=== PATIENT | male | born 1965 | race Caucasian/White ===

== ENCOUNTER 2020-04-15 03:41 | Outpatient (CLI) | payer MEDICAID, SELFPAY ==
[2020-04-15 11:28] LABS: Abs Immature Grans 0.04 10^3/uL (0.0-0.06); Absolute Basophil Count 0.01 10^3/uL (0.0-0.2); Absolute Lymphocyte Count 0.27 10^3/uL (1.2-3.4); Absolute Monocyte Count 0.04 10^3/uL (0.1-0.8); Absolute Neutrophil Count 3.27 10^3/uL (1.2-6.7); Basophils % 0.3; HCT 31.4 % (40.0-50.0); HGB 10.8 g/dL (13.5-17.5); Immature Grans % 1.1; Lymphocytes % 7.4; MCH 35.1 pg (27.0-33.0); MCHC 34.4 % (32.0-36.0); MCV 101.9 fL (80-95); MPV 9.1 fL (8.0-11.0); Monocytes % 1.1; Neutrophils % 90.1; Nucleated RBC 0 %; Platelet Count 176 10^3/uL (130-400); RBC 3.08 10^6/uL (4.36-5.78); RDW 12.3 % (11.8-14.1); RDW-SD 46.6 fL; WBC 3.63 10^3/uL (4.4-10.8)
[2020-04-15 11:52] LABS: ALT 41 U/L (16-63); AST 42 U/L (15-37); Alkaline Phosphatase 77 U/L (46-116); Anion Gap 14.6 mmol/L (3-11); BUN 24 mg/dL (7-18); Bilirubin, Total 0.3 mg/dL (0.2-1.0); CO2 20.4 mmol/L (21.0-32.0); CREATININE 1.63 mg/dL (0.70-1.30); Calcium 9.3 mg/dL (8.5-10.1); Chloride 94 mmol/L (98-107); Estimated GFR 44.14 (mL/min/1.73m2); FREE T4 0.97 ng/dL (0.76-1.46); Glucose 148 mg/dL (74-106); LDH 130 U/L (85-227); Potassium 4.6 mmol/L (3.5-5.1); Sodium 129 mmol/L (136-145); TSH 0.39 uIU/mL (0.36-3.74); Total Protein 8.7 g/dL (6.4-8.2)
== END 2020-04-15 04:01 ==
PROVIDERS: PCP Nurse Practitioner Family; Visit Provider Internal Medicine Hematology & Oncology
DX: C34.92 Malignant neoplasm of unspecified part of left bronchus or lung (principal)
CPT/HCPCS: 36415; 80053; 83615; 84439; 84443; 85025

== ENCOUNTER 2020-05-04 13:43 | Outpatient (CLI) | payer MEDICAID, SELFPAY ==
[2020-05-04 14:04] LABS: Abs Immature Grans 0.08 10^3/uL (0.0-0.06); Absolute Eosinophil Count 0.02 10^3/uL (0.0-0.7); Absolute Lymphocyte Count 0.42 10^3/uL (1.2-3.4); Absolute Monocyte Count 0.35 10^3/uL (0.1-0.8); Absolute Neutrophil Count 1.03 10^3/uL (1.2-6.7); Eosinophils % 1.1; HCT 22.5 % (40.0-50.0); HGB 7.7 g/dL (13.5-17.5); Immature Grans % 4.2; Lymphocytes % 22.1; MCH 35.5 pg (27.0-33.0); MCHC 34.2 % (32.0-36.0); MCV 103.7 fL (80-95); MPV 9.6 fL (8.0-11.0); Monocytes % 18.4; Neutrophils % 54.2; Nucleated RBC 0 %; Platelet Count 141 10^3/uL (130-400); RBC 2.17 10^6/uL (4.36-5.78); RDW 12.8 % (11.8-14.1); RDW-SD 44.5 fL
[2020-05-04 14:29] LABS: Diff Comment Diff Reviewed; Hypochromasia 1+; Macrocytosis 1+; Polychromasia Present
[2020-05-04 14:35] LABS: ALT 25 U/L (16-63); AST 25 U/L (15-37); Albumin 3.1 g/dL (3.4-5.0); Alkaline Phosphatase 52 U/L (46-116); Anion Gap 13.1 mmol/L (3-11); BUN 16 mg/dL (7-18); Bilirubin, Total 0.2 mg/dL (0.2-1.0); CO2 21.9 mmol/L (21.0-32.0); CREATININE 1.33 mg/dL (0.70-1.30); Calcium 8.1 mg/dL (8.5-10.1); Chloride 100 mmol/L (98-107); Estimated GFR 55.82 (mL/min/1.73m2); FREE T4 1.06 ng/dL (0.76-1.46); Glucose 103 mg/dL (74-106); LDH 152 U/L (85-227); Sodium 135 mmol/L (136-145); TSH 0.49 uIU/mL (0.36-3.74); Total Protein 7.1 g/dL (6.4-8.2)
== END 2020-05-04 14:03 ==
PROVIDERS: PCP Nurse Practitioner Family; Visit Provider Internal Medicine Hematology & Oncology
DX: C34.92 Malignant neoplasm of unspecified part of left bronchus or lung (principal)
CPT/HCPCS: 36415; 80053; 83615; 84439; 84443; 85025

== ENCOUNTER 2020-05-04 14:54 | Observation (INO) | payer MEDICAID, SELFPAY ==
[2020-05-04] VITALS (57 sets, daily range): BP systolic 97–153; BP diastolic 59–81; PULSE 60–105; RESP 9–26; TEMP 36.3–37.1; O2SAT 92–97
--- NOTE | 2020-05-04 15:08 | W.ED.GENAD ---
Discharge Plan Disposition Patient Disposition: [facility] INPATIENT Condition: Stable Discharge Details Chief Complaint: GenMedical Clinical Impression: Neutropenic fever, Pneumonia, Acute on chronic anemia, Fatigue Admit Date/Time: 05/04/20 19:16 Admit Provider: Danny Jessica Attending Provider: Danny Jessica Primary Care Provider: Shazia Beltran ED Provider: Emily Urrutia Discharge Data Discharge Date/Time-TO BE ENTERED AT DEPARTURE: 05/04/20 21:45 Medical Decision Making 1540 -- 54-year-old male with a history of lung cancer who recently started chemotherapy presents for leukopenia and anemia noted on labs drawn today in preparation for chemotherapy in 2 days from now. He admits to recent generalized weakness and decreased appetite. He also admits to temp of 100 at the cancer center today. Heart rate 100s. Blood pressure stable. Afebrile. He appears chronically ill but nontoxic. Labs drawn today note a white blood cell count of 1.9, hemoglobin of 7.7, ANC 1.03. Will obtain a type and screen, lactate, troponin, magnesium, urinalysis, CT chest and abdomen. Will reach out to patient's oncologist Dr. Rodas for recommendations. 1830 --remainder of labs reviewed. Lactate 1.5. Troponin negative. Urinalysis negative. CT chest notes left upper lobe and right lower lobe neoplasm, questionable pneumonia right middle lobe. Case discussed with [facility] oncology on-call -they were notified that patient had a temp of 100.6 today. In setting of neutropenic fever, questionable pneumonia and fatigue, will admit for observation, fluids and IV antibiotics. Case discussed with hospitalist who accepts patient for admission. Patient initially hesitant for admission and then spoke with his sisters and is now agreeable. Medical Records Medical records reviewed: Yes I reviewed the patient's medical records. Imaging Data Radiologic Study: Radiologist's impression: CT Angiography Chest With Contrast Exam date and time: 05/04/2020 4:18 PM Age: 54 years old Clinical indication: Abdominal pain; Left-sided chest pain; Patient HX: L sided pain, R/O pe TECHNIQUE: Imaging protocol: Computed tomographic angiography of the chest with intravenous contrast. 3D rendering (Not supervised by radiologist): MIP and/or 3D reconstructed images were created by the technologist. COMPARISON: No relevant prior studies available. FINDINGS: Pulmonary arteries: Normal. No pulmonary emboli. Aorta: Unremarkable. No aortic aneurysm. No aortic dissection. Lungs: Somewhat spiculated opacity in the left upper lobe may represent pneumonia or neoplasm.. Milder opacity in the right middle lobe may represent atelectasis/pneumonia versus neoplasm.. Spiculated density in the right lower lobe 2.3 x 1.7 cm. ( Series 6, image 414).. 8.7 mm nodule in the right middle lobe. Series 4, image 41. . Small nodules in the posterior aspect of the superior segment of the right lower lobe [place] in the right lower lobe Pleural space: Unremarkable. No pneumothorax. No pleural effusion. Heart: Unremarkable. No cardiomegaly. No pericardial effusion. Mediastinal space: Soft tissue density in the right hilum 2.5 x 1.6 cm. . Lymph nodes: Unremarkable. No enlarged lymph nodes. Bones/joints: Healing bilateral rib fractures Soft tissues: Unremarkable. IMPRESSION: 1. Somewhat spiculated opacity in the left upper lobe may represent pneumonia or neoplasm.. 2. Milder opacity in the right middle lobe may represent atelectasis/pneumonia versus neoplasm.. 3. Spiculated density in the right lower lobe 2.3 x 1.7 cm. ( Series 6, image 414). Neoplasm versus pneumonia. 4. 8.7 mm nodule in the right middle lobe. Series 4, image 41. . 5. Soft tissue density in the right hilum 2.5 [address] Abdomen And Pelvis With Contrast Exam date and time: 05/04/2020 4:18 PM Age: 54 years old Clinical indication: Abdominal pain; Left-sided chest pain; Patient HX: L sided pain, R/O pe TECHNIQUE: Imaging protocol: Computed tomography of the abdomen and pelvis with intravenous contrast. COMPARISON: No relevant prior studies available. FINDINGS: Liver: Normal. No mass. Gallbladder and bile ducts: Normal. No calcified stones. No ductal dilation. Pancreas: Surgical clips adjacent to the head of the pancreas Spleen: Normal. No splenomegaly. Adrenals: Normal. No mass. Kidneys and ureters: Normal. No hydronephrosis. Stomach and bowel: The stomach is decompressed Appendix: No evidence of appendicitis. Intraperitoneal space: Unremarkable. No free air. No significant fluid collection. Vasculature: Unremarkable. No abdominal aortic aneurysm. Lymph nodes: Unremarkable. No enlarged lymph nodes. Bladder: Unremarkable as visualized. Reproductive: Unremarkable as visualized. Bones/joints: Unhealed fracture in the left transverse process of L2. Soft tissues: Unremarkable. IMPRESSION: Unhealed fracture in the left transverse process of L2. Lab Data Lab results reviewed: Yes I reviewed the patient's lab results. Labs: 05/04/20 16:50 Blood Blood Culture - Pending 05/04/20 16:35 Blood Blood Culture - Pending Laboratory Tests Range/Units 05/04/20 05/04/20 05/04/20 15:20 15:20 15:20 PT (9.3-11.0) sec INR (0.9-1.1) APTT (21.0-31.4) sec Lactate (0.6-1.4) mmol/L Magnesium (1.8-2.4) mg/dL 1.1 L Troponin I (<0.06) ng/mL < 0.05 Urine Color (Yellow) Urine Clarity (Clear) Urine pH (5-8) Ur Specific [place] (1.005-1.025) Urine Protein (Negative) mg/dL Urine Ketones (Negative) mg/dL Urine Blood (Negative) Urine Nitrite (Negative) Urine Bilirubin (Negative) Urine Urobilinogen (Up TO 0.2) EU/dL Ur Leukocyte Esterase (Negative) Urine RBC (0-2) HPF Urine WBC (0-5) HPF Ur Epithelial Cells (Negative) HPF Urine Crystals (Negative) HPF Urine Bacteria (Negative) HPF Urine Casts (Negative) LPF Urine Mucus (Negative) Ur Culture Indicated? Urine Glucose (Negative) mg/dL Patient ABO/Rh O Positive Antibody Screen Negative Crossmatch See Detail Range/Units 05/04/20 05/04/20 05/04/20 15:20 16:25 16:35 PT (9.3-11.0) sec 9.6 INR (0.9-1.1) 1.0 APTT (21.0-31.4) sec 25.3 Lactate (0.6-1.4) mmol/L 1.5 H Magnesium (1.8-2.4) mg/dL Troponin I (<0.06) ng/mL Urine Color (Yellow) Yellow Urine Clarity (Clear) Clear Urine pH (5-8) 5.5 Ur Specific [place] (1.005-1.025) 1.025 Urine Protein (Negative) mg/dL Trace H Urine Ketones (Negative) mg/dL Negative Urine Blood (Negative) Negative Urine Nitrite (Negative) Negative Urine Bilirubin (Negative) Negative Urine Urobilinogen (Up TO 0.2) EU/dL 0.2 Ur Leukocyte Esterase (Negative) Negative Urine RBC (0-2) HPF Negative Urine WBC (0-5) HPF Negative Ur Epithelial Cells (Negative) HPF Negative Urine Crystals (Negative) HPF Negative Urine Bacteria (Negative) HPF Negative Urine Casts (Negative) LPF 3-5 hyaline Urine Mucus (Negative) Trace Ur Culture Indicated? No Urine Glucose (Negative) mg/dL Negative Patient ABO/Rh Antibody Screen Crossmatch ECG Data Attestation: I personally reviewed and interpreted this ECG (s) as follows: Interpretation: Rate of 73, sinus, no acute ST elevation or depression. Peaked T waves in lead II, V3 through V6. NH 152. QRS 77. QTc 405. HPI General Mode of arrival: ambulatory. Date/Time Provider Initiated Documentation: 05/04/20 15:05. Limitations to Documentation: no limitations. Information obtained by: patient. HPI Narrative: Patient is a 54-year-old male with a history of lung cancer who recently started chemotherapy who presents after sent by [facility] for anemia. Of labs drawn today, his white blood cell count was 1.9, hemoglobin 7.7 and platelet count 141. Patient states when he was at the cancer center he had a temperature of 100. He states he has been feeling generally fatigued with a decreased appetite for the past few days. He admits to chronic shortness of breath and cough with his lung cancer but states this is not significantly worse than usual. He denies any chest pain, abdominal pain, vomiting or diarrhea. He denies any significant nosebleeds, hemoptysis, hematuria or rectal bleeding. Related Data Home Medications Medication Instructions Recorded Confirmed albuterol sulfate 2 puff INHALATION 6XD PRN 05/04/20 05/04/20 amlodipine 5 mg PO DAILY 05/04/20 05/04/20 dexamethasone 4 mg PO DIRECTED 05/04/20 05/04/20 folic acid 1 mg PO DAILY 05/04/20 05/04/20 lisinopril 20 mg PO DAILY 05/04/20 05/04/20 magnesium 500 mg PO DAILY 05/04/20 05/04/20 metoprolol succinate 25 mg PO DAILY 05/04/20 05/04/20 omeprazole 40 mg PO DAILY 05/04/20 05/04/20 oxycodone 5 mg PO Q4H PRN 05/04/20 05/04/20 prochlorperazine maleate 10 mg PO Q6H PRN 05/04/20 05/04/20 [Compazine] thiamine HCl (vitamin B1) 100 mg PO DAILY 05/04/20 05/04/20 tiotropium-olodaterol 2 puff INHALATION DAILY 05/04/20 05/04/20 Allergies Allergy/AdvReac Type Severity Reaction Status Date / Time No Known Allergies Allergy Unverified 05/04/20 15:48 General Stated Complaint: GenMedical PITA: 3 Review of Systems All systems reviewed & are unremarkable except as noted in HPI and below Constitutional Constitutional: Reports as per HPI, Denies chills, Reports fatigue and Denies fever(s) Eyes Eyes: Denies blurry vision ENT Ears, Nose, Mouth, and Throat: Denies dizziness, Denies sore throat and Denies throat swelling Cardiovascular Cardiovascular: Denies chest pain and Denies dyspnea Respiratory Respiratory: Denies cough and Denies dyspnea Gastrointestinal Gastrointestinal: Denies abdominal pain, Denies diarrhea and Denies vomiting Genitourinary Genitourinary: Denies hematuria and Denies dysuria Musculoskeletal Musculoskeletal: Denies back pain and Denies numbness Integumentary/Breasts Skin/Breast: Denies lesions and Denies rash Neurologic Neurologic: Denies dizziness, Denies localized weakness and Denies numbness Endocrine Endocrine: Reports fatigue Allergic/Immunologic Allergic/Immunologic: Denies throat swelling [facility] Medical History HTN (hypertension) (Chronic) Lung cancer (Chronic) Pacemaker (Acute) Social History Smoking/Tobacco Use Status: Current every day Tobacco Type: cigarettes Alcohol Intake: current Alcohol Intake frequency: 0-2 drinks per day Alcohol type: beer Drug use: Occasionally Substance use type: marijuana Do you feel safe at home: Yes Do you feel safe in your relationship?: Yes Exam Const General: cooperative, no acute distress and ill appearing chronically Orientation: alert, awake and oriented x3 HENMT Head: normal to inspection Face and sinus: normal facial exam Eyes General: appearance normal, both eyes and all related structures Pupils: PERRL EOM: EOM intact bilaterally Neck Neck: normal visual inspection and No submandibular swelling Lymphatic: no lymphadenopathy noted Chest Chest: normal inspection of the chest and no tenderness Resp Effort & Inspection: normal respiratory effort and able to speak in complete sentences Auscultation: clear to auscultation bilaterally Cardio Rate: regular rate Rhythm: regular rhythm GI Inspection: normal to inspection Palpation: soft, not firm, not rigid and nontender Auscultation: normal bowel sounds Skin General skin exam: no rashes or lesions noted Neuro General: patient alert, patient awake and patient oriented x3 Cognition: normal cognition Speech: speech normal Motor: muscle tone normal throughout Sensory Exam: no sensory deficits noted Extrem General: normal to inspection, full ROM, capillary refill normal, no calf tenderness bilaterally and no edema Psych Appearance: grossly normal Mental Status: mental status grossly normal Speech and Movement: speech and movement normal Affect: normal affect Course Vital Signs Vital signs: Vital Signs Temperature 98.2 F 05/04/20 15:03 Pulse 105 H 05/04/20 15:03 Blood Pressure 84/56 L 05/04/20 15:03 Pulse Oximetry 97 05/04/20 15:03 Temperature 98.2 F 05/04/20 15:03 Temperature Source Temporal Artery Scan 05/04/20 15:03 Pulse 105 H 05/04/20 15:03 Blood Pressure 84/56 L 05/04/20 15:03 Blood Pressure Position Sitting 05/04/20 15:03 Pulse Oximetry 97 05/04/20 15:03 Oxygen Delivery Method Room Air 05/04/20 15:03 Oxygen Flow Rate 0 05/04/20 15:03 Pain Level 9 05/04/20 15:03
--- NOTE | 2020-05-04 16:00 | DI.CT_ITS ---
EXAM: CT CHEST PE ABD PELVIS W CLINICAL HISTORY: anemia, L sided pain, r/o PE, TECHNIQUE: COMPARISON: No exams were available for comparison FINDINGS: CT examination of the chest, abdomen, and pelvis was performed with bolus infusion of 100 cc of Omnip aque 350. No prior films available for comparison. There is a spiculated mass of the infra hilar right middle lobe measuring roughly 3 cm in diameter. There is an elongated masslike area of increased radiodensity in left upper lobe measuring up to abou t 3 x 1.5 cm in diameter on coronal imaging. There is a spiculated right upper lobe mass in the mid lung measuring 10 millimeters in diameter. Additional faint questionable reticulo nodular opacities seen bilaterally. Significant septal prominence seen the dependent portions of the lungs. No pleura l effusion. No pneumothorax. Tracheobronchial tree appears intact. No evidence of pulmonary embolic disease. No evidence of thoracic aortic aneurysm or dissection. Mild prominence of right hilar lymph node, about 2 cm in diameter. No additional significant mediast inal adenopathy. No axillary or supraclavicular adenopathy seen. Adrenals appear normal bilaterally. Unremarkable appearance of the liver and spleen. Multiple vascu lar clips noted in the pancreatic head region, please correlate regarding history of pancreatic neopl asm. Marked gastric wall thickening noted, nonspecific, neoplastic disease not excluded. No gross b iliary dilatation. Kidneys appear normal bilaterally. No urinary tract calcification or obstruction. Abdominal aorta is of normal diameter. No major visceral vessel occlusion. No significant abdominal or pelvic adenopathy. No significant abdominal wall hernia. Normal appearance of the appendix. No evidence of diverticulitis or bowel obstruction. Unremarkable urinary bladder except for question m ild bladder wall thickening, question bladder outlet obstruction, chronic. No bony blastic or lytic lesion seen in the region surveyed of the chest, abdomen or pelvis. Unheale d left L2 transverse process fracture noted. IMPRESSION: Multiple spiculated intrapulmonary masses, prior pancreatic head surgery noted. Findings as describe d may represent primary or metastatic neoplastic disease of the lung. Prior scans from other institu tions requested for correlation. Clinical history requested. Marked gastric wall thickening, neopla stic disease not excluded, gastroscopy suggested for further evaluation. Possibility that the intrapulmonary findings represent infectious process is not excluded but unlikel y. RADIATION DOSE DELIVERED: 749.13mGy.cm Total DLP
[2020-05-04] MEDS: Normal Saline 1,000 ML 1000 ML IV (16:16)
--- NOTE | 2020-05-04 16:30 | RT.EKG_ITS ---
APPROVED REPORT Exam: Resting ECG Patient Location: E HR:73 bpm ECG Measurements Heart Rate 73 AXIS ME 152 P 54 QRSd 77 QRS 48 QT 367 T 55 QTc 405 Conclusion Sinus rhythm...normal P axis, V-rate 60- 99 Consider anteroseptal infarct...Q >30mS, dimin R, V1-V2. Sinus. Peaked T waves lead II, V3-6. No STEMI. Nondiagnostic.
[2020-05-04 16:44] LABS: PTT Activated 25.3 sec (21.0-31.4); Prothrombin Time 9.6 sec (9.3-11.0)
[2020-05-04 16:47] LABS: Magnesium 1.1 mg/dL (1.8-2.4)
[2020-05-04 16:50] LABS: Bilirubin Negative (Negative); Blood Negative (Negative); Clarity Clear (Clear); Glucose Negative (Negative); Ketones Negative (Negative); Leukocyte Esterase Negative (Negative); Nitrite Negative (Negative); Specific Gravity 1.025 (1.005-1.025); Urobilinogen 0.2 EU/dL (Up TO 0.2); pH 5.5 (5-8)
[2020-05-04 16:57] LABS: Bacteria Negative HPF (Negative); C & S Indicated? No; Casts 3-5 Hyaline LPF (Negative); Crystals Negative HPF (Negative); Epithelial Cells Negative HPF (Negative); Mucus Trace (Negative); RBC Negative HPF (0-2); WBC Negative HPF (0-5)
[2020-05-04 16:58] LABS: Troponin I < 0.05 ng/mL (<0.06)
[2020-05-04] MEDS: ACETAMINOPHEN 1,000 MG/100 ML BTL 400 MG IVPB (16:59)
[2020-05-04 17:04] LABS: Lactate 1.5 mmol/L (0.6-1.4)
[2020-05-04] MEDS: oxyCODONE 5 MG TAB PO (17:19)
[2020-05-04] MEDS: MAGNESIUM SULFATE 2 GM/50 ML BAG IVPB (17:24)
[2020-05-04] MEDS: Omnipaque 350 MG/ML 100 ML BTL IJ (18:15)
[2020-05-04] MEDS: Normal Saline - Diluent 50 ML VIAL IV (18:16)
--- NOTE | 2020-05-04 18:22 | DI.VRAD_ITS ---
PROCEDURE INFORMATION: Exam: CT Angiography Chest With Contrast Exam date and time: 05/04/2020 4:18 PM Age: 54 years old Clinical indication: Abdominal pain; Left-sided chest pain; Patient HX: L sided pain, R/O pe TECHNIQUE: Imaging protocol: Computed tomographic angiography of the chest with intravenous contrast. 3D rendering (Not supervised by radiologist): MIP and/or 3D reconstructed images were created by the technologist. COMPARISON: No relevant prior studies available. FINDINGS: Pulmonary arteries: Normal. No pulmonary emboli. Aorta: Unremarkable. No aortic aneurysm. No aortic dissection. Lungs: Somewhat spiculated opacity in the left upper lobe may represent pneumonia or neoplasm.. Milder opacity in the right middle lobe may represent atelectasis/pneumonia versus neoplasm.. Spiculated density in the right lower lobe 2.3 x 1.7 cm. ( Series 6, image 414).. 8.7 mm nodule in the right middle lobe. Series 4, image 41. . Small nodules in the posterior aspect of the superior segment of the right lower lobe [place] in the right lower lobe Pleural space: Unremarkable. No pneumothorax. No pleural effusion. Heart: Unremarkable. No cardiomegaly. No pericardial effusion. Mediastinal space: Soft tissue density in the right hilum 2.5 x 1.6 cm. . Lymph nodes: Unremarkable. No enlarged lymph nodes. Bones/joints: Healing bilateral rib fractures Soft tissues: Unremarkable. IMPRESSION: 1. Somewhat spiculated opacity in the left upper lobe may represent pneumonia or neoplasm.. 2. Milder opacity in the right middle lobe may represent atelectasis/pneumonia versus neoplasm.. 3. Spiculated density in the right lower lobe 2.3 x 1.7 cm. ( Series 6, image 414). Neoplasm versus pneumonia. 4. 8.7 mm nodule in the right middle lobe. Series 4, image 41. . 5. Soft tissue density in the right hilum 2.5 x 1.6 cm. . PROCEDURE INFORMATION: Exam: CT Abdomen And Pelvis With Contrast Exam date and time: 05/04/2020 4:18 PM Age: 54 years old Clinical indication: Abdominal pain; Left-sided chest pain; Patient HX: L sided pain, R/O pe TECHNIQUE: Imaging protocol: Computed tomography of the abdomen and pelvis with intravenous contrast. COMPARISON: No relevant prior studies available. FINDINGS: Liver: Normal. No mass. Gallbladder and bile ducts: Normal. No calcified stones. No ductal dilation. Pancreas: Surgical clips adjacent to the head of the pancreas Spleen: Normal. No splenomegaly. Adrenals: Normal. No mass. Kidneys and ureters: Normal. No hydronephrosis. Stomach and bowel: The stomach is decompressed Appendix: No evidence of appendicitis. Intraperitoneal space: Unremarkable. No free air. No significant fluid collection. Vasculature: Unremarkable. No abdominal aortic aneurysm. Lymph nodes: Unremarkable. No enlarged lymph nodes. Bladder: Unremarkable as visualized. Reproductive: Unremarkable as visualized. Bones/joints: Unhealed fracture in the left transverse process of L2. Soft tissues: Unremarkable. IMPRESSION: Unhealed fracture in the left transverse process of L2. Dictated and Authenticated by: Arash Burks MD. Ordering:CHRISTIAN Diaz MD
[2020-05-04] MEDS: VANCOMYCIN 1,000 MG in Normal Saline 250 ML 166.6666 MG IVPB (19:20)
--- NOTE | 2020-05-04 19:59 | HPE_ITS ---
Date of service: 05/04/20 Time of Service: 19:59 Assessment and Plan Assessment and plan (1) Neutropenic fever: Status: Acute Assessment and plan: s/p one round of chemotx recently for bilateral upper lobe lung cancer Zosyn and Vanc initiated. A dose of Rocephin was initially given in the ED. Monitor WBC count Not septic. (2) Pneumonia: Status: Acute Assessment and plan: Likely developing a RML pneumonia. + neutropenia. Zosyn and Vanc. (3) Acute on chronic anemia: Status: Acute Assessment and plan: Hgb 7.7 Hgb on 04/15/2020 was 10.8. Type and hold Hgb in AM. (4) Lung cancer: Status: Chronic Assessment and plan: s/p first round of chemotx recently. Second round scheduled for Mon, 05/06; will be postponed. (5) HTN (hypertension): Status: Chronic Assessment and plan: Cont home meds; amlodipine, lisinopril and metoprolol. Monitor. History of Present Illness History of Present Illness Chief Complaint: Neutropenic fever Narrative: This is a 54 yo male with a h/o lung cancer, COPD, tobacco abuse, HTN, pacemaker. He is s/p his first round of chemotherapy and scheduled for the second on 05/06/2020. He was seen at the cancer center on day of this admission and noted to have a temperature of 100 F. His labs showed a WBC count of 1.9, Hgb of 7.7 and platelet count of 141. He states he generally feels some fatigue but not much different than his recent baseline. + chills. He did experience a tooth that broke and is irritating his tongue; this is contributing to a decreased appetite. No increased cough/sputum/SOA above his baseline. No bleeding from any site noted. No recent travel. Review of Systems All systems reviewed & are unremarkable except as noted in HPI and below PFSH Medical History HTN (hypertension) (Chronic) Lung cancer (Chronic) Pacemaker (Acute) Social History Smoking/Tobacco Use Status: Current every day Tobacco Type: cigarettes Alcohol Intake: current Alcohol Intake frequency: 0-2 drinks per day Alcohol type: beer Drug use: Occasionally Substance use type: marijuana Do you feel safe at home: Yes Do you feel safe in your relationship?: Yes Meds Home Medications and Allergies Home Medications Medication Instructions Recorded Confirmed Type albuterol sulfate 2 puff INHALATION 6XD PRN 05/04/20 05/04/20 History amlodipine 5 mg PO DAILY 05/04/20 05/04/20 History dexamethasone 4 mg PO DIRECTED 05/04/20 05/04/20 History folic acid 1 mg PO DAILY 05/04/20 05/04/20 History lisinopril 20 mg PO DAILY 05/04/20 05/04/20 History magnesium 500 mg PO DAILY 05/04/20 05/04/20 History metoprolol succinate 25 mg PO DAILY 05/04/20 05/04/20 History omeprazole 40 mg PO DAILY 05/04/20 05/04/20 History oxycodone 5 mg PO Q4H PRN 05/04/20 05/04/20 History prochlorperazine maleate 10 mg PO Q6H PRN 05/04/20 05/04/20 History [Compazine] thiamine HCl (vitamin B1) 100 mg PO DAILY 05/04/20 05/04/20 History tiotropium-olodaterol 2 puff INHALATION DAILY 05/04/20 05/04/20 History Allergies Allergy/AdvReac Type Severity Reaction Status Date / Time No Known Allergies Allergy Unverified 05/04/20 15:48 Exam Const General: cooperative, frail appearing and ill appearing Nutritional Appearance: thin Orientation: alert Eyes General: appearance normal, both eyes and all related structures Conjunctivae: conjunctival abnormality (pale) Sclera: sclerae normal Neck Neck: normal visual inspection, full ROM and no JVD Resp Effort & Inspection: normal respiratory effort Auscultation: wheezes expiratory wheezes and upper bilaterally Cardio Rate: regular rate Rhythm: regular rhythm Heart Sounds: S1 normal and S2 normal GI Inspection: normal to inspection Palpation: soft Percussion: normal to percussion Auscultation: normal bowel sounds Skin General skin exam: ecchymosis (scattered of all extremities.) Rashes: no rashes Extrem General: no pedal edema and no calf tenderness Psych Appearance: grossly normal Mental Status: mental status grossly normal Speech and Movement: speech and movement normal Mood: congruent mood Affect: blunted Attitude: cooperative Results Labs Labs: Laboratory Results - last 24 hr 05/04/20 05/04/20 05/04/20 15:20 15:20 15:20 PT INR APTT Lactate Magnesium 1.1 L Troponin I < 0.05 Urine Color Urine Clarity Urine pH Ur Specific [place] Urine Protein Urine Ketones Urine Blood Urine Nitrite Urine Bilirubin Urine Urobilinogen Ur Leukocyte Esterase Urine RBC Urine WBC Ur Epithelial Cells Urine Crystals Urine Bacteria Urine Casts Urine Mucus Ur Culture Indicated? Urine Glucose Patient ABO/Rh O Positive Antibody Screen Negative Crossmatch See Detail 05/04/20 05/04/20 05/04/20 15:20 16:25 16:35 PT 9.6 INR 1.0 APTT 25.3 Lactate 1.5 H Magnesium Troponin I Urine Color Yellow Urine Clarity Clear Urine pH 5.5 Ur Specific [place] 1.025 Urine Protein Trace H Urine Ketones Negative Urine Blood Negative Urine Nitrite Negative Urine Bilirubin Negative Urine Urobilinogen 0.2 Ur Leukocyte Esterase Negative Urine RBC Negative Urine WBC Negative Ur Epithelial Cells Negative Urine Crystals Negative Urine Bacteria Negative Urine Casts 3-5 hyaline Urine Mucus Trace Ur Culture Indicated? No Urine Glucose Negative Patient ABO/Rh Antibody Screen Crossmatch Last Vital Signs Temp 36.8 C 05/04/20 15:03 Pulse 71 05/04/20 19:28 Resp 9 L 05/04/20 19:28 BP 120/71 05/04/20 19:28 Pulse Ox 97 05/04/20 19:28 COVID-19 Screening Have you,or household,traveled outside [place] in last 14 days?: Yes
--- NOTE | 2020-05-04 20:50 | NUR.NOTE ---
Nursing Note:Consent signed for Blood Transfusion.
[2020-05-04] MEDS: Normal Saline Flush 10 ML SYR IVP (23:08)
[2020-05-04] MEDS: Enoxaparin 40 MG/0.4 ML SYR SC (23:08)
[2020-05-04] MEDS: hydrOXYzine HCL 50 MG TAB PO (23:09)
[2020-05-04] MEDS: PIPERACILLIN/TAZO 3.375 GM in Normal Saline 50 ML IVPB (23:09)
[2020-05-04] MEDS: Normal Saline 1,000 ML 80 ML IV (23:09)
[2020-05-05 00:05] VITALS: BP 119/70; PULSE 77; RESP 18; TEMP 37; O2SAT 97
[2020-05-05] MEDS: oxyCODONE 5 MG TAB PO ×3 (00:06→14:30)
[2020-05-05] MEDS: PIPERACILLIN/TAZO 3.375 GM in Normal Saline 50 ML IVPB ×2 (05:01→10:00)
[2020-05-05] MEDS: Normal Saline Flush 10 ML SYR IVP (06:46)
[2020-05-05 07:30] LABS: Abs Immature Grans 0.05 10^3/uL (0.0-0.06); HCT 24.4 % (40.0-50.0); HGB 8.2 g/dL (13.5-17.5); MCH 33.9 pg (27.0-33.0); MCHC 33.6 % (32.0-36.0); MCV 100.8 fL (80-95); Nucleated RBC 0 %; RBC 2.42 10^6/uL (4.36-5.78); RDW 13.6 % (11.8-14.1); RDW-SD 46.6 fL
[2020-05-05 07:33] VITALS: BP 169/80; PULSE 81; RESP 18; TEMP 38.5; O2SAT 96
[2020-05-05 08:14] LABS: Absolute Lymphocyte Count 0.28 10^3/uL (1.2-3.4); Absolute Monocyte Count 0.21 10^3/uL (0.1-0.8); Absolute Neutrophil Count 1.35 10^3/uL (1.2-6.7); Bands % 1; WBC 1.87 10^3/uL (4.4-10.8)
[2020-05-05 08:15] LABS: Diff Comment Manual Differential; Metamyelocytes % 1; Myelocytes % 1; Platelet Count 124 10^3/uL (130-400); RBC Morphology Normal
[2020-05-05 08:17] LABS: ALT 20 U/L (16-63); AST 17 U/L (15-37); Alkaline Phosphatase 52 U/L (46-116); Anion Gap 9.4 mmol/L (3-11); BUN 13 mg/dL (7-18); Bilirubin, Total 0.6 mg/dL (0.2-1.0); CO2 22.6 mmol/L (21.0-32.0); CREATININE 1.16 mg/dL (0.70-1.30); Calcium 7.8 mg/dL (8.5-10.1); Chloride 102 mmol/L (98-107); Glucose 99 mg/dL (74-106); Potassium 4.1 mmol/L (3.5-5.1); Sodium 134 mmol/L (136-145); Total Protein 6.7 g/dL (6.4-8.2)
[2020-05-05] MEDS: Tiotropium/Olodaterol 10 PUFF INHALER 2 PUFF IH (09:17)
[2020-05-05 09:24] VITALS: O2SAT 94
--- NOTE | 2020-05-05 09:48 | PDOC.CMIN ---
- If Service Date Differs Date of service: 05/05/20 Time of Service: 16:33 Care Management Initial Assess REASON FOR HOSPITALIZATION:: Neutropenic fever, Pneumonia, anemia, leukopenia PAST MEDICAL HISTORY/PAST SURGICAL HISTORY:: Lung cancer, COPD, tobacco abuse, HTN, pacemaker PREVIOUS FUNCTIONAL STATUS/SOCIAL/FAMILY SUPPORTS:: Pablo resides in [place], [place], with his sister, Carri. He is currently battling lung cancer and is on his first round of chemotherapy. CURRENT FUNCTIONAL STATUS:: Pablo remains on reverse precautions, CM attempts to meet with him throughout the day without success; CM continues to follow. ADVANCE DIRECTIVES:: None on file at [facility]. Has patient been provided with info about the portal/API?: No Did the patient sign up for the portal?: No CODE STATUS:: Full Code INSURANCE COVERAGE / FINANCIAL ISSUES:: [employer] CURRENT [place]UNITY [place] [facility] [place] [facility]: chemotherapy for lung cancer with mets to bone. PRIMARY CARE PHYSICIAN:: Shazia Beltran POTENTIAL DISCHARGE NEEDS:: Follow up appointments. PATIENT/FAMILY EDUCATION NEEDS:: Review of discharge instructions, discuss Ask Me Three. ANTICIPATED BARRIERS TO DISCHARGE:: None identified at this time. TRANSPORTATION:: Via private vehicle with family. PLAN:: Pablo will return home when ready per MD. He will follow up with his PCP, Oncologist and plan of care as prescribed. He will transport via private vehicle with family.
[2020-05-05] MEDS: Metoprolol CR 25 MG TABCR PO (10:00)
[2020-05-05] MEDS: guaiFENesin 600 MG TABCR PO ×2 (10:00→19:51)
[2020-05-05] MEDS: Nicotine 14 MG/24 HR PATCH TD (10:00)
[2020-05-05] MEDS: Folic Acid 1 MG TAB PO (10:00)
[2020-05-05] MEDS: Omeprazole 20 MG CAPCR 40 MG PO (10:00)
[2020-05-05] MEDS: amLODIPine 5 MG TAB PO (10:00)
[2020-05-05] MEDS: Lisinopril 20 MG TAB PO (10:00)
[2020-05-05] MEDS: Magnesium Gluconate 500 MG TAB PO ×2 (10:00→19:50)
[2020-05-05] MEDS: Dexamethasone 4 MG TAB PO (10:01)
[2020-05-05] MEDS: Thiamine 100 MG TAB PO (10:01)
--- NOTE | 2020-05-05 11:04 | PGE_ITS ---
Date of Service Date of service: 05/05/20 Time of Service: 11:04 Assessment and Plan Assessment and plan (1) Pneumonia: Status: Acute Assessment and plan: continue Zosyn but at higher dosing of 4.5 gm IV q8hr to be run over 4h period. continue current treatment of his COPD w/ Stiolto and prn albuterol. Qualifiers: Pneumonia type: due to unspecified organism Laterality: bilateral Lung location: unspecified part of lung Qualified Code(s): J18.9 - Pneumonia, unspecified organism (2) Lung cancer: Status: Chronic Qualifiers: Laterality: unspecified laterality Lung location: unspecified part of lung Qualified Code(s): C34.90 - Malignant neoplasm of unspecified part of unspecified bronchus or lung (3) HTN (hypertension): Status: Chronic Assessment and plan: continue current home meds of lisinopril, metoprolol, amlodipine Qualifiers: Hypertension type: essential hypertension Qualified Code(s): I10 - Essential (primary) hypertension (4) Hypomagnesemia: Status: Acute Assessment and plan: Treat with both parenteral and oral supplementation. Repeat his levels in the morning (5) DVT prophylaxis: Status: Acute Assessment and plan: Patient placed on enoxaparin daily Subjective Subjective Interval history since last seen: Patient is a 54-year-old male smoker with history of COPD, lung cancer undergoing chemotherapy treatment through [facility] in [facility]. Last chemotherapy treatment was April 15 and included carboplatin, Alimta and katruda (?spelling). He has not had any GM-CSF treatment w/ Neupogen or Neulasta. He presented to the ER d/t having a fever when he went to his oncologist's office. He denies any rigors. He has a non-productive cough. No CP nor any dyspnea. No nausea or vomiting nor any diarrhea nor dysuria. Exam Narrative Exam Narrative: Middle-age male who appears to be disheveled but he is alert and oriented person place time circumstance. HEENT is unremarkable. Neck is supple nontender. Lungs reveal scattered expiratory wheezes with some rhonchi at both bases posteriorly Heart regular rate and rhythm Abdomen soft and nontender. Objective Objective Clinical Data: Abnormal lab results 05/04/20 05/04/20 05/04/20 Range/Units 15:20 15:20 16:25 WBC (4.4-10.8) 10^3/uL RBC (4.36-5.78) 10^6/uL Hgb (13.5-17.5) g/dL Hct (40.0-50.0) % MCV (80-95) fL MCH (27.0-33.0) pg Plt Count (130-400) 10^3/uL Absolute Lymphocytes (1.2-3.4) 10^3/uL Sodium (136-145) mmol/L Lactate (0.6-1.4) mmol/L Calcium (8.5-10.1) mg/dL Magnesium 1.1 L (1.8-2.4) mg/dL Albumin (3.4-5.0) g/dL Urine Protein Trace H (Negative) mg/dL Crossmatch See Detail 05/04/20 05/05/20 05/05/20 Range/Units 16:35 07:00 07:00 WBC 1.87 L* (4.4-10.8) 10^3/uL RBC 2.42 L (4.36-5.78) 10^6/uL Hgb 8.2 L (13.5-17.5) g/dL Hct 24.4 L (40.0-50.0) % MCV 100.8 H (80-95) fL MCH 33.9 H (27.0-33.0) pg Plt Count 124 L (130-400) 10^3/uL Absolute Lymphocytes 0.28 L (1.2-3.4) 10^3/uL Sodium 134 L (136-145) mmol/L Lactate 1.5 H (0.6-1.4) mmol/L Calcium 7.8 L (8.5-10.1) mg/dL Magnesium 1.0 L (1.8-2.4) mg/dL Albumin 3.0 L (3.4-5.0) g/dL Urine Protein (Negative) mg/dL Crossmatch Vital Signs Temperature 38.5 C H 05/05/20 07:33 Temperature Source Tympanic 05/05/20 07:33 Pulse 81 05/05/20 07:33 Pulse Rhythm Regular 05/05/20 02:50 Pulse 75 05/04/20 21:31 Respiratory Rate 18 05/05/20 07:33 Respiratory Effort 05/05/20 10:19 Respiratory Depth Normal 05/05/20 10:19 Respiratory Pattern Normal 05/05/20 10:19 Blood Pressure 169/80 H 05/05/20 07:33 Blood Pressure Mean 90 05/04/20 21:31 Blood Pressure Position Sitting 05/04/20 15:03 Pulse Oximetry 94 L 05/05/20 09:24 Oxygen Delivery Method Room Air 05/05/20 09:24 Oxygen Flow Rate 0 05/05/20 09:24 Pain Level 7 05/05/20 07:46 Comment 05/05/20 07:33 Intake & Output 05/04/20 05/04/20 05/05/20 11:59 23:59 11:59 Intake Total 1470 / 1854 814 / 814 Output Total 1999 Balance 1470 / 1854 -1186 / -1186 Weight 61.689 kg Intake: IV 1470 / 1470 70 / 70 Oral 360 / 360 Blood Product 384 / 384 Rbc Leuko Reduced Unit 384 / 384 [id number] Output: Urine 1999 Other: Urine Color Yellow Urine Appearance Clear Urine Odor Normal Voiding Methods Urinal Laboratory Results WBC 1.87 10^3/uL (4.4-10.8) L* 05/05/20 07:00 RBC 2.42 10^6/uL (4.36-5.78) L 05/05/20 07:00 Hgb 8.2 g/dL (13.5-17.5) L 05/05/20 07:00 Hct 24.4 % (40.0-50.0) L 05/05/20 07:00 MCV 100.8 fL (80-95) H 05/05/20 07:00 MCH 33.9 pg (27.0-33.0) H 05/05/20 07:00 MCHC 33.6 % (32.0-36.0) 05/05/20 07:00 RDW 13.6 % (11.8-14.1) 05/05/20 07:00 Plt Count 124 10^3/uL (130-400) L 05/05/20 07:00 MPV 10.0 fL (8.0-11.0) 05/05/20 07:00 Immature Gran % 0.0 05/05/20 07:00 Neutrophils % 71.0 05/05/20 07:00 Band Neutrophils % 1 05/05/20 07:00 Lymphocytes % 15.0 05/05/20 07:00 Monocytes % 11.0 05/05/20 07:00 Eosinophils % 0.0 05/05/20 07:00 Basophils % 0.0 05/05/20 07:00 Metamyelocytes % 1 05/05/20 07:00 Myelocytes % 1 05/05/20 07:00 Nucleated RBC % 0 % 05/05/20 07:00 Absolute Neutrophils 1.35 10^3/uL (1.2-6.7) 05/05/20 07:00 Absolute Lymphocytes 0.28 10^3/uL (1.2-3.4) L 05/05/20 07:00 Absolute Monocytes 0.21 10^3/uL (0.1-0.8) 05/05/20 07:00 Absolute Eosinophils 0.00 10^3/uL (0.0-0.7) 05/05/20 07:00 Absolute Basophils 0.00 10^3/uL (0.0-0.2) 05/05/20 07:00 RBC Morphology Normal 05/05/20 07:00 PT 9.6 sec (9.3-11.0) 05/04/20 15:20 INR 1.0 (0.9-1.1) 05/04/20 15:20 APTT 25.3 sec (21.0-31.4) 05/04/20 15:20 Sodium 134 mmol/L (136-145) L 05/05/20 07:00 Potassium 4.1 mmol/L (3.5-5.1) 05/05/20 07:00 Chloride 102 mmol/L (98-107) 05/05/20 07:00 Carbon Dioxide 22.6 mmol/L (21.0-32.0) 05/05/20 07:00 Anion Gap 9.4 mmol/L (3-11) 05/05/20 07:00 BUN 13 mg/dL (7-18) 05/05/20 07:00 Creatinine 1.16 mg/dL (0.70-1.30) 05/05/20 07:00 Estimated GFR/1.73 m2 >= 60.00 (mL/min/1.73m2) 05/05/20 07:00 Glucose 99 mg/dL (74-106) 05/05/20 07:00 Lactate 1.5 mmol/L (0.6-1.4) H 05/04/20 16:35 Calcium 7.8 mg/dL (8.5-10.1) L 05/05/20 07:00 Magnesium 1.0 mg/dL (1.8-2.4) L 05/05/20 07:00 Total Bilirubin 0.6 mg/dL (0.2-1.0) 05/05/20 07:00 AST 17 U/L (15-37) 05/05/20 07:00 ALT 20 U/L (16-63) 05/05/20 07:00 Alkaline Phosphatase 52 U/L (46-116) 05/05/20 07:00 Troponin I < 0.05 ng/mL (<0.06) 05/04/20 15:20 Total Protein 6.7 g/dL (6.4-8.2) 05/05/20 07:00 Albumin 3.0 g/dL (3.4-5.0) L 05/05/20 07:00 Urine Color Yellow (Yellow) 05/04/20 16:25 Urine Clarity Clear (Clear) 05/04/20 16:25 Urine pH 5.5 (5-8) 05/04/20 16:25 Ur Specific Seibert 1.025 (1.005-1.025) 05/04/20 16:25 Urine Protein Trace mg/dL (Negative) H 05/04/20 16:25 Urine Ketones Negative mg/dL (Negative) 05/04/20 16:25 Urine Blood Negative (Negative) 05/04/20 16:25 Urine Nitrite Negative (Negative) 05/04/20 16:25 Urine Bilirubin Negative (Negative) 05/04/20 16:25 Urine Urobilinogen 0.2 EU/dL (Up TO 0.2) 05/04/20 16:25 Ur Leukocyte Esterase Negative (Negative) 05/04/20 16:25 Urine RBC Negative HPF (0-2) 05/04/20 16:25 Urine WBC Negative HPF (0-5) 05/04/20 16:25 Ur Epithelial Cells Negative HPF (Negative) 05/04/20 16:25 Urine Crystals Negative HPF (Negative) 05/04/20 16:25 Urine Bacteria Negative HPF (Negative) 05/04/20 16:25 Urine Casts 3-5 hyaline LPF (Negative) 05/04/20 16:25 Urine Mucus Trace (Negative) 05/04/20 16:25 Ur Culture Indicated? No 05/04/20 16:25 Urine Glucose Negative mg/dL (Negative) 05/04/20 16:25 Patient ABO/Rh O Positive 05/04/20 15:20 Antibody Screen Negative 05/04/20 15:20 Crossmatch See Detail 05/04/20 15:20 Reviewed Pertinent PMH: Yes Objective Narrative Objective Narrative: Exam: CT Angiography Chest With Contrast Exam date and time: 05/04/2020 4:18 PM IMPRESSION: 1. Somewhat spiculated opacity in the left upper lobe may represent pneumonia or neoplasm.. 2. Milder opacity in the right middle lobe may represent atelectasis/pneumonia versus neoplasm.. 3. Spiculated density in the right lower lobe 2.3 x 1.7 cm. ( Series 6, image 414). Neoplasm versus pneumonia. 4. 8.7 mm nodule in the right middle lobe. Series 4, image 41. . 5. Soft tissue density in the right hilum 2.5 x 1.6 cm. .
[2020-05-05 14:11] LABS: COVID-19 RT-PCR UVMMC Result Negative (Negative)
[2020-05-05] MEDS: Normal Saline 1,000 ML 80 ML IV (14:31)
[2020-05-05 15:08] VITALS: BP 158/86; PULSE 68; RESP 18; TEMP 36.8; O2SAT 96
[2020-05-05] MEDS: MAGNESIUM SULFATE 4 GM/100 ML BAG IVPB (15:30)
[2020-05-05] MEDS: PIPERACILLIN/TAZO 4.5 GM in Normal Saline 100 ML IVPB ×2 (16:20→23:59)
[2020-05-05 20:29] VITALS: BP 147/79; PULSE 66; RESP 18; TEMP 37.1; O2SAT 99
[2020-05-05] MEDS: hydrOXYzine HCL 50 MG TAB PO (21:34)
[2020-05-05] MEDS: Enoxaparin 40 MG/0.4 ML SYR SC (21:36)
[2020-05-06] MEDS: oxyCODONE 5 MG TAB PO ×2 (04:59→11:35)
[2020-05-06 05:47] VITALS: BP 156/79; PULSE 63; RESP 18; TEMP 37; O2SAT 96
[2020-05-06 07:16] VITALS: BP 151/80; PULSE 60; RESP 17; TEMP 36.5; O2SAT 98
[2020-05-06 07:30] LABS: Abs Immature Grans 0.05 10^3/uL (0.0-0.06); Absolute Lymphocyte Count 0.36 10^3/uL (1.2-3.4); Absolute Monocyte Count 0.41 10^3/uL (0.1-0.8); Absolute Neutrophil Count 1.56 10^3/uL (1.2-6.7); HCT 24.6 % (40.0-50.0); HGB 8.4 g/dL (13.5-17.5); Immature Grans % 2.1; Lymphocytes % 15.1; MCH 34.6 pg (27.0-33.0); MCHC 34.1 % (32.0-36.0); MCV 101.2 fL (80-95); MPV 10.5 fL (8.0-11.0); Monocytes % 17.2; Neutrophils % 65.6; Nucleated RBC 0 %; Platelet Count 149 10^3/uL (130-400); RBC 2.43 10^6/uL (4.36-5.78); RDW 13.5 % (11.8-14.1); RDW-SD 46.2 fL; WBC 2.38 10^3/uL (4.4-10.8)
[2020-05-06 07:39] LABS: Anion Gap 7.9 mmol/L (3-11); BUN 12 mg/dL (7-18); CO2 24.1 mmol/L (21.0-32.0); CREATININE 1.26 mg/dL (0.70-1.30); Calcium 7.9 mg/dL (8.5-10.1); Chloride 100 mmol/L (98-107); Estimated GFR 59.42 (mL/min/1.73m2); Glucose 129 mg/dL (74-106); Magnesium 1.7 mg/dL (1.8-2.4); Potassium 3.7 mmol/L (3.5-5.1); Sodium 132 mmol/L (136-145)
[2020-05-06] MEDS: Tiotropium/Olodaterol 10 PUFF INHALER 2 PUFF IH (07:47)
[2020-05-06] MEDS: Omeprazole 20 MG CAPCR 40 MG PO (08:31)
[2020-05-06] MEDS: Thiamine 100 MG TAB PO (08:31)
[2020-05-06] MEDS: Magnesium Gluconate 500 MG TAB PO (08:31)
[2020-05-06] MEDS: guaiFENesin 600 MG TABCR PO (08:31)
[2020-05-06] MEDS: amLODIPine 5 MG TAB PO (08:31)
[2020-05-06] MEDS: Lisinopril 20 MG TAB PO (08:31)
[2020-05-06] MEDS: Dexamethasone 4 MG TAB PO (08:32)
[2020-05-06] MEDS: Metoprolol CR 25 MG TABCR PO (08:32)
[2020-05-06] MEDS: Folic Acid 1 MG TAB PO (08:32)
[2020-05-06] MEDS: PIPERACILLIN/TAZO 4.5 GM in Normal Saline 100 ML IVPB (08:32)
[2020-05-06 09:20] LABS: Anisocytosis 1+; Diff Comment RBC Morph Reviewed
[2020-05-06 09:21] LABS: Hypochromasia 1+; Poikilocytes 2+; Polychromasia Present
--- NOTE | 2020-05-06 10:54 | DSE_ITS ---
DS: Diagnosis Discharge Diagnosis (1) Pneumonia: Status: Ruled-out Asessment and Plan: Although patient present with low-grade fever he remained afebrile throughout his hospital course and had no hypoxemia. Patient CT scan showed no definitive evidence of pneumonia. CT did show a spiculated lung masses consistent with his diagnosis of lung cancer. It is suspected a prior had incipient acute purulent bronchitis. Patient was treated with Zosyn 4 .5 g IV every 8 hours. He is being discharged with a 7-day course of Augmentin 875 mg p.o. twice daily (2) Lung cancer: Status: Chronic Asessment and Plan: Patient was instructed to follow-up with his oncologist to discuss when to resume chemotherapy treatments. (3) HTN (hypertension): Status: Chronic Asessment and Plan: No changes made in his antihypertensives (4) Hypomagnesemia: Status: Acute Asessment and Plan: Patient was placed on oral magnesium supplementation a nd given IV supplementation as well. Repeat magnesium level is requested within 1 week. Discharge Plan Disposition Patient Disposition: HOME Condition: Stable Discharge Details Chief Complaint: GenMedical Clinical Impression: Neutropenic fever, Pneumonia, Acute on chronic anemia, Fatigue Reason For Visit: PNEUMONIA,ANEMIA,LEUKOPENIA Admit Date/Time: 05/04/20 19:16 Admit Provider: Danny Jessica Attending Provider: Danny Jessica Primary Care Provider: Shazia Beltran ED Provider: Emily Urrutia Hospital Course Hospital Course: 54-year-old male smoker with history of lung cancer who recently started chemotherapy presented for follow-up lab work ordered by his oncologist in preparation for chemotherapy 2 days prior to his current admission. While at the cancer center he was noted to have a fever of 100.6 and was referred to the emergency department. His only symptoms include generalized weakness and decreased appetite. He denies any rigors although he does have a cough that is minimally productive of sputum he has had no shortness of breath no chest discomfort. He was evaluated the emergency department by Dr. Emily Urrutia who performed repeat labs as well as CT scan of the chest and she spoke with the onc ologist on-call for [facility] who recommended observation for IV fluids and IV antibiotics. Notable labs on admission showed a white count of 1900 with minimal neutropenia of 1000 neutrophils. He was also noted to be mildly anemic with hemoglobin 7.7 g chemistries were remarkable for mildly elevated creatinine 1.33 with a BUN of 16. Potassium was normal at 4.0. Magnesium was low at 1.1. LFTs were normal and troponin was normal. He was started on IV fluids and given both oral and IV magnesium supplementation and blood cultures were obtained and he was started on Zosyn and given a one-time dose of vancomycin in the emergency department. CT imaging of the chest to rule out PE was performed no pulmonary embolus was seen but multiple spiculated intrapulmonary masses were seen bilaterally as well as evidence of previous pancreatic head surgery. Radiologist felt that the lung findings were associate sales representative of either primary or metastatic neoplastic disease in the lungs. Correlation with prior scans from other institutions was requested. Also noted was market gastric wall thickening for which neoplastic disease cannot be excluded. No definite pulmonary consolidation or pleural effusion seen. Spiculated masses include right infrahilar middle lobe measuring 3 cm in the left upper lobe mass measuring 3 x 1.5 cm and a spiculated right upper lobe mass measuring 10 mm. Patient did well and had no fevers throughout his hospital course. Blood cultures came back no growth after 24 hours. The vancomycin was not continued throughout his hospital stay but he was kept on Zosyn at 4.5 g IV every 8 hours. He was kept on all of his routine home medications including his amlodipine, Decadron, folic acid, lisinopril, Toprol-XL, omeprazole, thiamine, Stiolto Respimat, MiraLAX, Mucinex, hydroxyzine. He was placed on magnesium gluconate 500 mg twice a day. As the patient continued to do well and had no shortness of breath and no chest discomfort and was not hypoxemic and there was no evidence of bacteremia and his repeat CBC on May 05 and 2019 showed stabilizing white blood cell count with his final white blood cell count being 2300 with no neutropenia as his neutrophils are now at 1500 it was felt the patient could be safely discharged home on a 7-day course of Augmentin 875 mg twice a day with close follow-up with his primary care provider and his oncologist Dr. Rodas. Repeat magnesium level is recommended in 1 week. Patient be discharged on oral supplementation of magnesium gluconate. Home Meds and New Rx's Prescriptions: New magnesium gluconate 27 mg magnesium (500 mg) Tablet 500 mg PO BID Qty: 60 RF: 0 amoxicillin-pot clavulanate [Augmentin] 875-125 mg tablet 1 tab PO Q12H Qty: 14 RF: 0 Continued lisinopril 20 mg Tablet 20 mg PO DAILY RF: 0 thiamine HCl (vitamin B1) 100 mg Tablet 100 mg PO DAILY RF: 0 amlodipine 5 mg Tablet 5 mg PO DAILY RF: 0 prochlorperazine maleate [Compazine] 10 mg Tablet 10 mg PO Q6H PRNRF: 0 omeprazole 40 mg Capsule,Delayed Release(Dr/Ec) 40 mg PO DAILY RF: 0 dexamethasone 4 mg Tablet 4 mg PO DIRECTED RF: 0 folic acid 1 mg Tablet 1 mg PO DAILY RF: 0 magnesium 250 mg Tablet 500 mg PO DAILY RF: 0 metoprolol succinate 25 mg Tablet Extended Release 24 Hr 25 mg PO DAILY RF: 0 albuterol sulfate 90 mcg/actuation Hfa Aerosol Inhaler 2 puff INHALATION 6XD PRNRF: 0 oxycodone 5 mg Tablet 5 mg PO Q4H PRNRF: 0 tiotropium-olodaterol 2.5-2.5 mcg/actuation Mist 2 puff INHALATION DAILY RF: 0 Discharge Instructions Instructions: Lung Cancer (DC), Bacterial Pneumonia (DC), Hypomagnesemia (DC), Chronic Lung Disease and Infection Prevention (DC) Additional Instructions: Get repeat magnesium level checked next week. Take your magnesium supplemen tation to keep your magnesium levels within normal. Low magnesium levels can cause muscle weakness. Avoid smoking. Talk with your PCP regarding assistance with smoking cessation. Finish out all of your antibiotics and follow-up with your primary care provider in the next 1 to 2 weeks. Keep your follow-up with your oncologist. Activity:: Activity as Tolerated Equipment/Supplies:: No Equipment Needed Diet:: Normal Diet Discharge Orders Discharge Orders: Discharge Order (Routine); Ordered 05/06/20 Ordered By: Bro Abebe Other Ambulatory Orders: Magnesium (Routine) Timeframe: 1 Week Location: None Selected Ordered By: Bro Abebe DS: Summary Status at Discharge Functional status at discharge: independent ambulation Overall status at discharge: patient is back to baseline Mental Status: mental status grossly normal Speech and Movement: speech and movement normal Mood: congruent mood Affect: normal affect Time Spent with Patient providing and/or coordinating discharge services: Less than 30 minutes Exam Narrative Exam Narrative: Disheveled middle-aged male who is alert and oriented person place time circumstance. Lungs are clear to auscultation Heart is regular rate and rhythm Abdomen soft and nontender. Extremities without peripheral cyanosis or edema. Neurologic exam grossly intact he is alert and oriented person place time circumstance no focal deficits. Psych Mental Status: mental status grossly normal Speech and Movement: speech and movement normal Mood: congruent mood Affect: normal affect DS: Data Vitals/I&O Vitals and I&O: Vital Signs Temperature 36.5 C 05/06/20 07:16 Temperature Source Tympanic 05/06/20 07:16 Pulse 60 05/06/20 07:16 Pulse Rhythm Regular 05/06/20 08:41 Pulse 75 05/04/20 21:31 Respiratory Rate 17 05/06/20 07:16 Respiratory Effort Non-Labored 05/06/20 08:41 Respiratory Depth Normal 05/06/20 08:41 Respiratory Pattern Normal 05/06/20 08:41 Blood Pressure 151/80 H 05/06/20 07:16 Blood Pressure Mean 90 05/04/20 21:31 Blood Pressure Position Sitting 05/04/20 15:03 Pulse Oximetry 98 05/06/20 07:16 Oxygen Delivery Method Room Air 05/06/20 07:16 Oxygen Flow Rate 0 05/06/20 07:16 Pain Level 7 05/06/20 07:16 Comment 05/06/20 07:16 Intake & Output 05/05/20 05/05/20 05/06/20 11:59 23:59 11:59 Intake Total 814 / 1973 1150 / 1973 710 / 710 Output Total 1999 600 / 3400 1275 / 1275 Balance -1186 / -1426 550 / -1426 -565 / -565 Intake: IV 70 / 1230 1150 / 1230 110 / 110 Oral 360 / 360 600 / 600 Blood Product 384 / 384 Rbc Leuko Reduced Unit 384 / 384 [id number] Output: Urine 1999 / 3400 600 / 3400 1275 / 1275 Other: Urine Color Yellow Yellow Pale Yellow Urine Appearance Clear Clear Clear Urine Odor Normal Normal None Voiding Methods Urinal Urinal Urinal Data Completed and Pending Labs on day of discharge: Labs from last 24 hours 05/06/20 05/06/20 05/05/20 06:35 06:35 00:00 WBC 2.38 L RBC 2.43 L Hgb 8.4 L Hct 24.6 L MCV 101.2 H MCH 34.6 H MCHC 34.1 RDW 13.5 Plt Count 149 MPV 10.5 Immature Gran % 2.1 Neutrophils % 65.6 Lymphocytes % 15.1 Monocytes % 17.2 Eosinophils % 0.0 Basophils % 0.0 Nucleated RBC % 0 Absolute Neutrophils 1.56 Absolute Lymphocytes 0.36 L Absolute Monocytes 0.41 Absolute Eosinophils 0.00 Absolute Basophils 0.00 RBC Morphology See below Polychromasia Present Hypochromasia 1+ Poikilocytosis 2+ Anisocytosis 1+ Sodium 132 L Potassium 3.7 Chloride 100 Carbon Dioxide 24.1 Anion Gap 7.9 BUN 12 Creatinine 1.26 Estimated GFR/1.73 m2 59.42 Glucose 129 H Calcium 7.9 L Magnesium 1.7 L COVID-19 PCR Negative Nasopharyn COVID-19 PCR Not Applicable Ref Test Perform Site [place] [facility] 05/05/20 10:15 Nose MRSA Screen - Pending Preliminary micro results at discharge 05/04/20 16:50 Blood Culture - Preliminary Blood NO GROWTH 24 HOURS 05/04/20 16:35 Blood Culture - Preliminary Blood NO GROWTH 24 HOURS 05/05/20 10:15 MRSA Screen - Pending Nose [facility] Medical History HTN (hypertension) (Chronic) Lung cancer (Chronic) Pacemaker (Acute) Social History Smoking/Tobacco Use Status: Current every day Tobacco Type: cigarettes Alcohol Intake: current Alcohol Intake frequency: 0-2 drinks per day Alcohol type: beer Drug use: Occasionally Substance use type: marijuana Do you feel safe at home: Yes Do you feel safe in your relationship?: Yes
[2020-05-06 15:23] LABS: Streptococcus Pneumoniae Ag, U Negative (Negative)
--- NOTE | 2020-05-06 15:47 | PDOC.CMDIS ---
- If Service Date Differs Date of service: 05/06/20 Time of Service: 15:47 LACE Index Scoring Tool - Questions: Length of Stay (in days): 3 Acuity (Admit via E.D.?): Yes Comorbidities: Chronic Pulmonary Disease, Metastatic Solid Tumor E.D. Visits: 1 - Answers: Total Score: 12 Risk of Readmission: High Risk Care Management Discharge Reason for Hospitalization: Neutropenic fever, Pneumonia, anemia, leukopenia Discharge Plan: Pablo will return home with no additional services at this time. He will be driven home via private vehicle by family. He will follow up with his PCP and discharge plan of care. He is happy to be going home. Patient/Family Education Needs: Review discharge instructions regarding activity levels and medications, discussion of self care needs including ask me three.
== END 2020-05-06 11:45 | disposition home or self-care (01) ==
LOC: ER 19:18 → MS 21:50
PROVIDERS: Internal Medicine; Admitting Provider Family Medicine; Emergency Provider Physician Assistant; PCP Nurse Practitioner Family; Visit Provider Family Medicine
DX: D70.9 Neutropenia, unspecified (principal); R50.81 Fever presenting with conditions classified elsewhere; R53.1 Weakness; C34.31 Malignant neoplasm of lower lobe, right bronchus or lung; C34.12 Malignant neoplasm of upper lobe, left bronchus or lung; D64.9 Anemia, unspecified; I10 Essential (primary) hypertension; J44.9 Chronic obstructive pulmonary disease, unspecified; Z95.0 Presence of cardiac pacemaker; F17.210 Nicotine dependence, cigarettes, uncomplicated; E83.42 Hypomagnesemia
CPT/HCPCS: 36415; 71275; 74177; 80048; 80053; 86850; 86900; 86901; 86920; 87040; 87081; 93005; 94640; 96361; 96365; 96366; 96367; 96375; 99222; 99225; 99238; 99285; J1650; U0003; 81003; 81015; 83605; 83735; 84484; 85025; 85610; 85730; 87450; 93010; 94667; 99217; 99219; G0378; J0131; J2543; J3475; J3490; J8540; P9016

== ENCOUNTER 2020-05-11 09:07 | Outpatient (CLI) | payer MEDICAID, SELFPAY ==
[2020-05-11 09:28] LABS: Abs Immature Grans 0.21 10^3/uL (0.0-0.06); Absolute Basophil Count 0.01 10^3/uL (0.0-0.2); Absolute Lymphocyte Count 0.29 10^3/uL (1.2-3.4); Absolute Monocyte Count 0.15 10^3/uL (0.1-0.8); Absolute Neutrophil Count 3.99 10^3/uL (1.2-6.7); Basophils % 0.2; HCT 26.8 % (40.0-50.0); HGB 9.2 g/dL (13.5-17.5); Immature Grans % 4.5; Lymphocytes % 6.2; MCH 35.1 pg (27.0-33.0); MCHC 34.3 % (32.0-36.0); MCV 102.3 fL (80-95); MPV 8.9 fL (8.0-11.0); Monocytes % 3.2; Neutrophils % 85.9; Nucleated RBC 0 %; Platelet Count 173 10^3/uL (130-400); RBC 2.62 10^6/uL (4.36-5.78); RDW 15.1 % (11.8-14.1); RDW-SD 50.7 fL; WBC 4.65 10^3/uL (4.4-10.8)
[2020-05-11 09:52] LABS: ALT 25 U/L (16-63); AST 20 U/L (15-37); Albumin 3.3 g/dL (3.4-5.0); Alkaline Phosphatase 82 U/L (46-116); Anion Gap 13.9 mmol/L (3-11); BUN 14 mg/dL (7-18); Bilirubin, Total 0.3 mg/dL (0.2-1.0); CO2 22.1 mmol/L (21.0-32.0); CREATININE 1.24 mg/dL (0.70-1.30); Calcium 8.9 mg/dL (8.5-10.1); Chloride 95 mmol/L (98-107); FREE T4 0.86 ng/dL (0.76-1.46); Glucose 136 mg/dL (74-106); LDH 176 U/L (85-227); Potassium 4.8 mmol/L (3.5-5.1); Sodium 131 mmol/L (136-145); TSH 0.36 uIU/mL (0.36-3.74); Total Protein 7.9 g/dL (6.4-8.2)
== END 2020-05-11 09:27 ==
PROVIDERS: Internal Medicine Hematology & Oncology; PCP Nurse Practitioner Family; Visit Provider Internal Medicine
DX: C34.92 Malignant neoplasm of unspecified part of left bronchus or lung (principal); E83.42 Hypomagnesemia
CPT/HCPCS: 36415; 80053; 83615; 83735; 84439; 84443; 85025

== ENCOUNTER 2020-06-01 01:32 | Outpatient (CLI) | payer MEDICAID, SELFPAY ==
[2020-06-01 09:47] LABS: Abs Immature Grans 0.64 10^3/uL (0.0-0.06); MCH 36.6 pg (27.0-33.0); MPV 9.6 fL (8.0-11.0); Nucleated RBC 0 %; Platelet Count 199 10^3/uL (130-400); RBC 1.64 10^6/uL (4.36-5.78); RDW 18.2 % (11.8-14.1); RDW-SD 65.9 fL
[2020-06-01 10:09] LABS: Absolute Lymphocyte Count 0.23 10^3/uL (1.2-3.4); Absolute Monocyte Count 0.69 10^3/uL (0.1-0.8); Absolute Neutrophil Count 10.35 10^3/uL (1.2-6.7); Bands % 3
[2020-06-01 10:10] LABS: Metamyelocytes % 1; Myelocytes % 1
[2020-06-01 10:11] LABS: Diff Comment Manual Differential; Hypochromasia 2+; Macrocytosis 2+; Polychromasia Present
[2020-06-01 10:12] LABS: Poikilocytes 2+
[2020-06-01 10:15] LABS: HCT 18.2 % (40.0-50.0)
[2020-06-01 10:17] LABS: ALT 12 U/L (16-63); AST 14 U/L (15-37); Albumin 3.1 g/dL (3.4-5.0); Alkaline Phosphatase 71 U/L (46-116); Anion Gap 15.1 mmol/L (3-11); BUN 15 mg/dL (7-18); Bilirubin, Total 0.2 mg/dL (0.2-1.0); CO2 18.9 mmol/L (21.0-32.0); CREATININE 1.43 mg/dL (0.70-1.30); Calcium 8.4 mg/dL (8.5-10.1); Chloride 97 mmol/L (98-107); Estimated GFR 51.34 (mL/min/1.73m2); FREE T4 1.01 ng/dL (0.76-1.46); Glucose 124 mg/dL (74-106); LDH 142 U/L (85-227); Potassium 4.5 mmol/L (3.5-5.1); Sodium 131 mmol/L (136-145); TSH 0.72 uIU/mL (0.36-3.74); Total Protein 7.4 g/dL (6.4-8.2)
== END 2020-06-01 01:52 ==
PROVIDERS: PCP Nurse Practitioner Family; Visit Provider Internal Medicine Hematology & Oncology
DX: C34.92 Malignant neoplasm of unspecified part of left bronchus or lung (principal)
CPT/HCPCS: 36415; 80053; 83615; 84439; 84443; 85025

== ENCOUNTER 2020-06-08 03:07 | Outpatient (CLI) | payer MEDICAID, SELFPAY ==
[2020-06-08 11:03] LABS: Absolute Basophil Count 0.01 10^3/uL (0.0-0.2); Absolute Lymphocyte Count 0.27 10^3/uL (1.2-3.4); Absolute Monocyte Count 0.24 10^3/uL (0.1-0.8); Absolute Neutrophil Count 4.19 10^3/uL (1.2-6.7); Basophils % 0.2; HCT 27.1 % (40.0-50.0); HGB 9.2 g/dL (13.5-17.5); Immature Grans % 4.1; Lymphocytes % 5.5; MCH 34.3 pg (27.0-33.0); MCHC 33.9 % (32.0-36.0); MCV 101.1 fL (80-95); Monocytes % 4.9; Neutrophils % 85.3; Nucleated RBC 0 %; RBC 2.68 10^6/uL (4.36-5.78); RDW 25.6 % (11.8-14.1); RDW-SD 94.1 fL; WBC 4.91 10^3/uL (4.4-10.8)
[2020-06-08 11:38] LABS: Anisocytosis 2+; Diff Comment RBC Morph Reviewed; Platelet Count 200 10^3/uL (130-400); Polychromasia Present
[2020-06-08 12:30] LABS: ALT 15 U/L (16-63); AST 16 U/L (15-37); Albumin 3.3 g/dL (3.4-5.0); Alkaline Phosphatase 63 U/L (46-116); Anion Gap 14.6 mmol/L (3-11); BUN 12 mg/dL (7-18); Bilirubin, Total 0.3 mg/dL (0.2-1.0); CO2 19.4 mmol/L (21.0-32.0); CREATININE 1.11 mg/dL (0.70-1.30); Calcium 8.5 mg/dL (8.5-10.1); Chloride 98 mmol/L (98-107); Glucose 142 mg/dL (74-106); Magnesium 1.5 mg/dL (1.8-2.4); Potassium 4.6 mmol/L (3.5-5.1); Sodium 132 mmol/L (136-145)
== END 2020-06-08 03:27 ==
PROVIDERS: PCP Nurse Practitioner Family; Visit Provider Nurse Practitioner Adult Health
DX: E83.42 Hypomagnesemia (principal); D64.9 Anemia, unspecified; D70.9 Neutropenia, unspecified; C34.12 Malignant neoplasm of upper lobe, left bronchus or lung
CPT/HCPCS: 36415; 80053; 83735; 85025